=== PATIENT | female | born 1975 | race Caucasian/White ===

== ENCOUNTER 2018-02-11 09:10 | Inpatient (IN) | payer BC ==
[2018-02-11] MEDS ORDERED: CARBOPROST 250 MCG INJ IM ×2 (09:30→18:00)
[2018-02-11] MEDS ORDERED: OXYTOCIN 30 UNITS/LR 500 ML IV ×3 (09:30→18:00)
[2018-02-11] MEDS ORDERED: MISOPROSTOL 200 MCG TAB PR ×2 (09:30→18:00)
[2018-02-11] MEDS ORDERED: METHYLERGONOVINE 0.2 MG INJ IM ×2 (09:30→18:00)
[2018-02-11 09:46] LABS: ADD MAN DIFF? NO
[2018-02-11 09:48] LABS: WHITE BLOOD COUNT 6.3 10^3/ul (4.8-10.8)
[2018-02-11 09:48] LABS: BASOPHILS % 0.2 % (0.0-2.0); EOSINOPHILS # 0.1 10^3/ul (0.0-0.5); EOSINOPHILS % 1.1 % (0.0-7.0); HEMATOCRIT 33.2 % (37.0-47.0); HEMOGLOBIN 11.1 g/dl (12.0-16.0); LYMPHOCYTES # 1.5 10^3/ul (0.8-2.9); LYMPHOCYTES % 23.2 % (15.0-51.0); MEAN CORPUSCULAR HEMOGLOBIN 31.2 pg (29.0-33.0); MEAN CORPUSCULAR HGB CONC 33.4 g/dl (32.0-37.0); MEAN CORPUSCULAR VOLUME 93.3 fl (82.0-101.0); MEAN PLATELET VOLUME 10.1 fl (7.4-10.4); MONOCYTE # 0.5 10^3/ul (0.3-0.9); MONOCYTES % 7.8 % (0.0-11.0); NEUTROPHIL # 4.2 10^3/ul (1.6-7.5); NEUTROPHILS % 67.4 % (39.0-77.0); PLATELET COUNT 202 10^3/UL (140-415); RED BLOOD COUNT 3.56 10^6/ul (4.20-5.40); RED CELL DISTRIBUTION WIDTH 12.7 % (11.5-14.5)
[2018-02-11] MEDS: LACTATED RINGER'S 1,000 ML IV ×3 (09:57→13:34)
[2018-02-11 10:09] LABS: INR 0.86; PARTIAL THROMBOPLASTIN TIME 24.6 Sec (25.0-35.0); PROTIME 11.8 Sec (11.9-14.9); PT RATIO 0.9
[2018-02-11 10:54] LABS: HEPATITIS B SURFACE ANTIGEN NEGATIVE (NEGATIVE)
[2018-02-11] MEDS ORDERED: CITRIC ACID/SODIUM CITRATE 15 ML CUP (12:29)
[2018-02-11] MEDS ORDERED: FAMOTIDINE 20 MG INJ (12:29)
[2018-02-11] MEDS ORDERED: METOCLOPRAMIDE 10 MG INJ (12:29)
[2018-02-11] MEDS: FAMOTIDINE 20 MG INJ IV ×2 (12:43→13:34)
[2018-02-11] MEDS: CITRIC ACID/SODIUM CITRATE 15 ML CUP PO ×2 (12:43→13:35)
[2018-02-11] MEDS: METOCLOPRAMIDE 10 MG INJ IV ×2 (12:43→13:34)
[2018-02-11] MEDS ORDERED: BUPIVACAINE 0.75%/DEXT (SPINAL) 2 ML INJ (12:57)
[2018-02-11] MEDS ORDERED: morphine SULFATE/PF (10 MG/10 ML) INJ (12:57)
[2018-02-11] MEDS ORDERED: PROCHLORPERAZINE 10 MG INJ IV (13:00)
[2018-02-11] MEDS ORDERED: DIPHENHYDRAMINE 50 MG INJ IV ×2 (13:00→14:30)
[2018-02-11] MEDS ORDERED: ONDANSETRON 4 MG INJ IV ×2 (13:00→14:30)
[2018-02-11] MEDS ORDERED: MEPERIDINE 25 MG INJ IV (13:00)
[2018-02-11] MEDS ORDERED: HYDROmorphONE 1 MG/5 ML IV SYRINGE IV (13:00)
[2018-02-11] MEDS ORDERED: FENTAnyl 50 MCG/ML VIAL IV (13:00)
[2018-02-11] MEDS ORDERED: PHENYLephrine (100 MCG/ML) 5ML SYG (13:20)
[2018-02-11] MEDS: CEFAZOLIN 3 GM in DEXTROSE 5% 100 ML IV (13:35)
[2018-02-11] MEDS ORDERED: EPHEDrine SULFATE 50 MG/5 ML SYG (13:51)
[2018-02-11] MEDS ORDERED: ZOLPIDEM 5 MG TAB PO (14:30)
[2018-02-11] MEDS ORDERED: HYDROmorphONE 0.5 MG/0.5 ML SYG IV ×2 (14:30)
[2018-02-11] MEDS ORDERED: NALOXONE (0.4 MG/ML) INJ IV (14:30)
[2018-02-11] MEDS: KETOROLAC 30 MG INJ IV (14:54)
[2018-02-11 15:39] LABS: RAPID PLASMA REAGIN NONREACTIVE (NR)
[2018-02-11] MEDS: OXYTOCIN 30 UNITS/LR 500 ML IV ×2 (16:02→18:30)
[2018-02-11 17:16] LABS: ADD MAN DIFF? NO
[2018-02-11 17:19] LABS: BASOPHILS % 0.2 % (0.0-2.0); EOSINOPHILS % 0.1 % (0.0-7.0); HEMATOCRIT 36.8 % (37.0-47.0); HEMOGLOBIN 12.5 g/dl (12.0-16.0); LYMPHOCYTES # 1.6 10^3/ul (0.8-2.9); LYMPHOCYTES % 13.6 % (15.0-51.0); MEAN CORPUSCULAR HEMOGLOBIN 31.5 pg (29.0-33.0); MEAN CORPUSCULAR VOLUME 92.7 fl (82.0-101.0); MEAN PLATELET VOLUME 10.5 fl (7.4-10.4); MONOCYTE # 0.5 10^3/ul (0.3-0.9); MONOCYTES % 3.9 % (0.0-11.0); NEUTROPHIL # 9.5 10^3/ul (1.6-7.5); NEUTROPHILS % 81.7 % (39.0-77.0); PLATELET COUNT 209 10^3/UL (140-415); RED BLOOD COUNT 3.97 10^6/ul (4.20-5.40); RED CELL DISTRIBUTION WIDTH 12.5 % (11.5-14.5)
[2018-02-11 17:19] LABS: WHITE BLOOD COUNT 11.7 10^3/ul (4.8-10.8)
[2018-02-11 17:34] LABS: INR 0.84; PROTIME 11.6 Sec (11.9-14.9); PT RATIO 0.9
[2018-02-11 17:35] LABS: PARTIAL THROMBOPLASTIN TIME 24.1 Sec (25.0-35.0)
[2018-02-11 17:36] LABS: ALANINE AMINOTRANSFERASE 29 IU/L (13-69); ALBUMIN/GLOBULIN RATIO 0.96; ALKALINE PHOSPHATASE 140 IU/L (42-121); ANION GAP 11 (8-16); ASPARTATE AMINO TRANSFERASE 33 IU/L (15-46); BILIRUBIN,INDIRECT 0.4 mg/dl (0-1.1); BILIRUBIN,TOTAL 0.4 mg/dl (0.2-1.3); BLOOD UREA NITROGEN 4 mg/dl (7-20); CARBON DIOXIDE 24 mmol/L (21-31); CHLORIDE 107 mmol/L (97-110); CREATININE 0.49 mg/dl (0.44-1.00); GLUCOSE 86 mg/dl (70-220); POTASSIUM 4.2 mmol/L (3.5-5.1); SODIUM 138 mmol/L (135-144); TOTAL PROTEIN 6.1 g/dl (6.1-8.1)
[2018-02-11 17:39] LABS: ADD UMIC NO; UR ASCORBIC ACID NEGATIVE (NEGATIVE); UR BILIRUBIN (Dip) NEGATIVE (NEGATIVE); UR BLOOD (Dip) NEGATIVE (NEGATIVE); UR CLARITY CLEAR (CLEAR); UR COLOR YELLOW (YELLOW); UR GLUCOSE (Dip) NEGATIVE (NEGATIVE); UR KETONES (Dip) 1+ mg/dL (NEGATIVE); UR LEUKOCYTE ESTERASE (Dip) NEGATIVE Leu/ul (NEGATIVE); UR NITRITE (Dip) NEGATIVE (NEGATIVE); UR SPECIFIC GRAVITY (Dip) 1.012 (1.003-1.030); UR TOTAL PROTEIN (Dip) NEGATIVE (NEGATIVE); UR UROBILINOGEN (Dip) NEGATIVE (NEGATIVE)
[2018-02-11 17:50] LABS: URIC ACID 4.4 mg/dl (3.1-7.9)
[2018-02-11] MEDS ORDERED: HYDROCODONE/APAP (5/325) TAB PO ×2 (18:00)
[2018-02-11] MEDS ORDERED: OXYCODONE/ACETAMINOPHEN (5/325) TAB PO ×2 (18:00)
[2018-02-11] MEDS ORDERED: LANOLIN 7 GM TUBE TOP (18:00)
[2018-02-11] MEDS: CEFAZOLIN 1 GM/50 ML (PMX) 50 ML IVPB (18:28)
[2018-02-11] MEDS: SENNA/DOCUSATE NA (8.6MG/50MG) TAB PO (20:51)
[2018-02-12] MEDS: OXYTOCIN 30 UNITS/LR 500 ML IV ×4 (00:56→09:54)
[2018-02-12] MEDS: KETOROLAC 30 MG INJ IV (05:23)
[2018-02-12 06:35] LABS: ADD MAN DIFF? NO
[2018-02-12 06:40] LABS: BASOPHILS % 0.2 % (0.0-2.0); EOSINOPHILS # 0.1 10^3/ul (0.0-0.5); HEMATOCRIT 32.1 % (37.0-47.0); HEMOGLOBIN 10.6 g/dl (12.0-16.0); LYMPHOCYTES # 1.2 10^3/ul (0.8-2.9); LYMPHOCYTES % 12.7 % (15.0-51.0); MEAN CORPUSCULAR HEMOGLOBIN 30.3 pg (29.0-33.0); MEAN CORPUSCULAR VOLUME 91.7 fl (82.0-101.0); MEAN PLATELET VOLUME 10.9 fl (7.4-10.4); MONOCYTE # 0.5 10^3/ul (0.3-0.9); NEUTROPHIL # 7.3 10^3/ul (1.6-7.5); NEUTROPHILS % 80.8 % (39.0-77.0); PLATELET COUNT 179 10^3/UL (140-415); RED CELL DISTRIBUTION WIDTH 12.8 % (11.5-14.5)
[2018-02-12 06:40] LABS: WHITE BLOOD COUNT 9.1 10^3/ul (4.8-10.8)
[2018-02-12] MEDS: SENNA/DOCUSATE NA (8.6MG/50MG) TAB PO ×2 (09:23→22:21)
[2018-02-12] MEDS: IBUPROFEN 600 MG TAB PO ×3 (12:32→23:46)
[2018-02-13] MEDS: IBUPROFEN 600 MG TAB PO ×4 (05:55→23:36)
[2018-02-13] MEDS: SENNA/DOCUSATE NA (8.6MG/50MG) TAB PO ×2 (09:11→20:57)
[2018-02-14] MEDS: IBUPROFEN 600 MG TAB PO ×3 (05:31→18:31)
[2018-02-14] MEDS: SENNA/DOCUSATE NA (8.6MG/50MG) TAB PO (08:47)
[2018-02-14] MEDS: DIPHTH/TET/ACEL PERTUSS (ADULT) 0.5 ML VIAL IM* (13:20)
== END 2018-02-14 20:05 | disposition home or self-care (01) | DRG 765 ==
LOC: L-D 09:10 → PP1 17:55
PROVIDERS: Obstetrics & Gynecology
PROC: 10D00Z1 Extraction of Products of Conception, Low, Open Approach (ICD-10-PCS; principal; 2018-02-11 13:30)
DX: O34.219 Maternal care for unspecified type scar from previous cesarean delivery (principal); Z68.41 Body mass index [BMI] 40.0-44.9, adult; O75.82 Onset (spontaneous) of labor after 37 completed weeks of gestation but before 39 completed weeks gestation, with delivery by (planned) cesarean section; O42.013 Preterm premature rupture of membranes, onset of labor within 24 hours of rupture, third trimester; O99.214 Obesity complicating childbirth; E66.9 Obesity, unspecified; Z3A.37 37 weeks gestation of pregnancy; Z37.0 Single live birth; Z23 Encounter for immunization
CPT/HCPCS: 76815; 76818; 80053; 81003; 84560; 85025; 85384; 85610; 85730; 86592; 86850; 86900; 86901; 87340; 90715; 99464